=== PATIENT | male | born 1995 | race Caucasian/White ===

== ENCOUNTER 2016-10-24 00:25 | Emergency (ER) | payer OTHER ==
[~2016-10-24] VITALS: Ht 172.7 cm; Wt 77.3 kg
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
[2016-10-24 00:27] VITALS: BP 137/87; PULSE 108; RESP 24; O2SAT 98
[2016-10-24 01:01] VITALS: BP 137/87; PULSE 108; RESP 24; O2SAT 98
== END 2016-10-24 01:02 ==
LOC: SED 00:25
DX: S61.211A Laceration without foreign body of left index finger without damage to nail, initial encounter (principal); F10.120 Alcohol abuse with intoxication, uncomplicated; Z02.89 Encounter for other administrative examinations; Y04.0XXA Assault by unarmed brawl or fight, initial encounter; Y93.9 Activity, unspecified; Y92.9 Unspecified place or not applicable; Y99.8 Other external cause status